=== PATIENT | female | born 1995 | race Caucasian/White ===

== ENCOUNTER 2017-10-26 13:29 | Emergency (ER) | payer SELFPAY ==
[~2017-10-26] VITALS: Ht 170.2 cm; Wt 104.8 kg
[2017-10-26 13:48] VITALS: BP 135/81
[2017-10-26 14:57] VITALS: BP 130/80
--- NOTE | 2017-10-26 14:57 | NUR ---
Patient discharged with v/s stable. Written and verbal after care instructions given and explained. Patient alert, oriented and verbalized understanding of instructions. Ambulatory with steady gait. All questions addressed prior to discharge. ID band removed. Patient advised to follow up with PMD. Rx of NYSTATIN 100,00 UNIT/ML, DIFLUCAN 200MG TAB & AZITHROMYCIN 250MG TAB given. Patient educated on indication of medication including possible reaction and side effects. Opportunity to ask questions provided and answered.
== END 2017-10-26 14:57 | disposition home or self-care (01) ==
LOC: MED 13:29
DX: B37.0 Candidal stomatitis (principal); J02.9 Acute pharyngitis, unspecified; E11.9 Type 2 diabetes mellitus without complications; I10 Essential (primary) hypertension
CPT/HCPCS: 99283